=== PATIENT | female | born 1985 | race Caucasian/White ===

== ENCOUNTER 2019-07-24 17:25 | Emergency (ER) | payer BC ==
[2019-07-24] MEDS ORDERED: DIPHENHYDRAMINE 50 MG/ML VIAL ONE (18:55)
[2019-07-24] MEDS ORDERED: METOCLOPRAMIDE 10 MG/2mL INJ ONE (18:55)
[2019-07-24] MEDS ORDERED: NA CHLORIDE 0.9% 1,000 ML ONE (18:55)
[2019-07-24] MEDS ORDERED: KETOROLAC 30 MG/ML INJ ONE (18:55)
[2019-07-24 20:03] LABS: Urine Blood NEGATIVE (NEG); Urine Glucose NEGATIVE (NEG); Urine Protein NEGATIVE (NEG); Urine Specific Gravity <1.005 (1.005-1.030)
--- NOTE | 2019-07-24 20:24 | RAD REPORT ---
EXAM DESCRIPTION: CT - Head Brain Wo Cont - 07/24/2019 8:19 pm CLINICAL HISTORY: HEADACHE COMPARISON: No comparisons TECHNIQUE: Axial 5 mm thick images of the head were obtained without IV contrast. All CT scans are performed using dose optimization technique as appropriate and may include automated exposure control or mA/KV adjustment according to patient size. FINDINGS: No intracranial hemorrhage, mass, edema or shift of mid-line structures. No acute infarcti on changes seen. No abnormal extra-axial fluid collections. Ventricles are normal. Mastoid air cells and visualized portions of the paranasal sinuses are clear. No acute bony findings. IMPRESSION: Negative non-contrast CT head examination.
--- NOTE | 2019-07-24 21:32 | ER ---
Nurse's Notes [facility] Name: Sury Richter Age: 34 yrs Sex: Female : 1985 Arrival Date: 07/24/2019 Time: 17:30 Bed 15 Private MD: Diagnosis: Headache Presentation: 07/24 17:37 Presenting complaint: Patient states: Headache x 8 days, mostly on the L side and ca1 radiates to the front. Reports nausea. Denies vomiting, dizziness. Transition of care: patient was not received from another setting of care. Onset of symptoms was July 24, 2019. Risk Assessment: Do you want to hurt yourself or someone else? Patient reports no desire to harm self or others. Initial Sepsis Screen: Does the patient meet any 2 criteria? No. Patient's initial sepsis screen is negative. Does the patient have a suspected source of infection? No. Patient's initial sepsis screen is negative. Care prior to arrival: None. 17:37 Method Of Arrival: Ambulatory ca1 17:37 Acuity: RUSSELL 3 ca1 Triage Assessment: 19:17 Headache History: The patient has had previous headaches and this one is more severe mg2 than previous episodes. General: Appears in no apparent distress. comfortable, Behavior is calm, cooperative. Pain: Complains of pain in head. 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 - Coronavirus screen:: The patient has NOT traveled to [place], [place], or [place] in the past 14 days. The patient has NOT had contact with known/suspected case of Coronavirus?. - Social history:: Smoking status: Patient reports the use of cigarette tobacco products, denies chronic smoking, but will smoke occasionally. - Ebola Screening: : Patient negative for fever greater than or equal to 101.5 degrees Fahrenheit, and additional compatible Ebola Virus Disease symptoms Patient denies exposure to infectious person Patient denies travel to an Ebola-affected area in the 21 days before illness onset No symptoms or risks identified at this time. Screenin:16 Abuse screen: Denies threats or abuse. Denies injuries from another. Nutritional mg2 screening: No deficits noted. Tuberculosis screening: No symptoms or risk factors identified. Fall Risk IV access (20 points). Assessment: 19:16 General: Appears in no apparent distress. comfortable, Behavior is calm, cooperative. mg2 Pain: Complains of pain in left temporal. Neuro: Level of Consciousness is awake, alert, obeys commands, Oriented to person, place, time, situation, Reports headache. Cardiovascular: Capillary refill < 3 seconds Patient's skin is warm and dry. Respiratory: Airway is patent Respiratory effort is even, unlabored, Respiratory pattern is regular, symmetrical. GI: No signs and/or symptoms were reported involving the gastrointestinal system. : No signs and/or symptoms were reported regarding the genitourinary system. EENT: No signs and/or symptoms were reported regarding the EENT system. Derm: Skin is intact, is healthy with good turgor, Skin is pink, warm \T\ dry. normal. Musculoskeletal: Circulation, motion, and sensation intact. Capillary refill < 3 seconds. 19:52 Reassessment: Patient appears in no apparent distress at this time. Patient and/or jb4 family updated on plan of care and expected duration. Pain level reassessed. Patient is alert, oriented x 3, equal unlabored respirations, skin warm/dry/pink. 21:28 Reassessment: Patient appears in no apparent distress at this time. Patient and/or jb4 family updated on plan of care and expected duration. Pain level reassessed. Patient is alert, oriented x 3, equal unlabored respirations, skin warm/dry/pink. Vital Signs: 17:39 BP 154 / 99; Pulse 82; Resp 17 S; Temp 97.3(O); Pulse Ox 99% on R/A; Weight 113.4 kg ca1 (R); Height 5 ft. 5 in. (165.10 cm) (R); Pain 7/10; 19:45 BP 121 / 86; Pulse 77; Resp 16; Pulse Ox 98% on R/A; jb4 21:28 BP 111 / 72; Pulse 73; Resp 16; Pulse Ox 100% on R/A; Pain 4/10; jb4 17:39 Body Mass Index 41.60 (113.40 kg, 165.10 cm) ca1 ED Course: 17:30 Patient arrived in ED. mr 17:38 Triage completed. ca1 17:42 Arm band placed on right wrist. ca1 18:31 Stanley Morataya NP is PHCP. pm1 18:31 Tate Tucker MD is Attending Physician. pm1 18:31 Tyson Murray, RN is Primary Nurse. mg2 19:00 Inserted saline lock: 20 gauge in right antecubital area, using aseptic technique. mg2 19:17 Patient has correct armband on for positive identification. Pulse ox on. NIBP on. mg2 19:17 No provider procedures requiring assistance completed. mg2 21:28 IV discontinued, intact, bleeding controlled, No redness/swelling at site. Pressure jb4 dressing applied. Administered Medications: 19:00 Drug: TORadol - Ketorolac 15 mg Route: IVP; Site: right antecubital; mg2 21:32 Follow up: Response: No adverse reaction jb4 19:00 Drug: Benadryl 25 mg Route: IVP; Site: right antecubital; mg2 21:32 Follow up: Response: No adverse reaction jb4 19:00 Drug: Reglan 10 mg Route: IVP; Site: right antecubital; mg2 21:32 Follow up: Response: No adverse reaction jb4 19:00 Drug: NS 0.9% 1000 ml Route: IV; Rate: 1000 ml; Site: right antecubital; mg2 20:30 Follow up: Response: No adverse reaction; IV Status: Completed infusion; IV Intake: jb4 1000ml Intake: 20:30 IV: 1000ml; Total: 1000ml. jb4 Outcome: 21:18 Discharge ordered by . pm1 21:28 Discharged to home ambulatory, with family. jb4 21:28 Condition: stable 21:28 Discharge instructions given to patient, family, Instructed on discharge instructions, follow up and referral plans. medication usage, Demonstrated understanding of instructions, follow-up care, medications, Prescriptions given X 1. 21:33 Patient left the ED. jb4 Signatures: Pinky Mcleod mr RafiaStanley, CHERIE TOP LIFT CUTTER pm1 Randy Borja RN RN jb4 Tyson Murray, ROSA RN mg2 Nicky Carlos RN RN ca1
--- NOTE | 2019-07-24 21:33 | EDPHYS ---
Physician Documentation [facility] Name: Sury Richter Age: 34 yrs Sex: Female : 1985 Arrival Date: 07/24/2019 Time: 17:30 Bed 15 Private MD: ED Physician Tate Tucker HPI: 07/24 18:39 This 34 yrs old Female presents to ER via Ambulatory with complaints of pm1 Headache. 18:39 The patient complains of pain to the left side of head. The patient describes the pm1 headache as aching, constant. Onset: The symptoms/episode began/occurred 8 day(s) ago. Associated signs and symptoms: Pertinent positives: nausea, Pertinent negatives: altered mental status, fever, neck stiffness, paresthesias, Photophobia rash, vision changes, vertigo. Severity of symptoms: in the emergency department the pain is unchanged, a " 7" out of "10". Headache History: Denies prior headaches. The symptoms are alleviated by Darkened room, quiet, lying down and rest the symptoms are aggravated by nothing. Patient presents with complaints of headache for the past 8 days. Improved with OTC medications but returns after an hour of the medication giving some relief. Also improved with dark room and lying down. No aggravating factors. 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 - Coronavirus screen:: The patient has NOT traveled to [place], [place], or [place] in the past 14 days. The patient has NOT had contact with known/suspected case of Coronavirus?. - Social history:: Smoking status: Patient reports the use of cigarette tobacco products, denies chronic smoking, but will smoke occasionally. - Ebola Screening: : Patient negative for fever greater than or equal to 101.5 degrees Fahrenheit, and additional compatible Ebola Virus Disease symptoms Patient denies exposure to infectious person Patient denies travel to an Ebola-affected area in the 21 days before illness onset No symptoms or risks identified at this time. ROS: 18:39 Constitutional: Negative for fever, chills, and weight loss, Eyes: Negative for injury, pm1 pain, redness, and discharge, ENT: Negative for injury, pain, and discharge, Neck: Negative for injury, pain, and swelling, Cardiovascular: Negative for chest pain, palpitations, and edema, Respiratory: Negative for shortness of breath, cough, wheezing, and pleuritic chest pain. 18:39 Back: Negative for injury and pain, : Negative for injury, bleeding, discharge, and swelling, MS/Extremity: Negative for injury and deformity, Skin: Negative for injury, rash, and discoloration. 18:39 Abdomen/GI: Positive for nausea, Negative for abdominal pain, vomiting, diarrhea, constipation. 18:39 Neuro: Positive for headache, Negative for altered mental status, numbness, tingling. Exam: 18:39 Constitutional: This is a well developed, well nourished patient who is awake, alert, pm1 and in no acute distress. 18:39 Eyes: Pupils equal round and reactive to light, extra-ocular motions intact. Lids and lashes normal. Conjunctiva and sclera are non-icteric and not injected. Cornea within normal limits. Periorbital areas with no swelling, redness, or edema. ENT: Nares patent. No nasal discharge, no septal abnormalities noted. Tympanic membranes are normal and external auditory canals are clear. Oropharynx with no redness, swelling, or masses, exudates, or evidence of obstruction, uvula midline. Mucous membranes moist. Neck: Trachea midline, no thyromegaly or masses palpated, and no cervical lymphadenopathy. Supple, full range of motion without nuchal rigidity, or vertebral point tenderness. No Meningismus. Chest/axilla: Normal chest wall appearance and motion. Nontender with no deformity. No lesions are appreciated. Cardiovascular: Regular rate and rhythm with a normal S1 and S2. No gallops, murmurs, or rubs. No pulse deficits. Respiratory: Lungs have equal breath sounds bilaterally, clear to auscultation and percussion. No rales, rhonchi or wheezes noted. No increased work of breathing, no retractions or nasal flaring. Abdomen/GI: Soft, non-tender, with normal bowel sounds. No distension or tympany. No guarding or rebound. No evidence of tenderness throughout. Back: No spinal tenderness. No costovertebral tenderness. Full range of motion. Skin: Warm, dry with normal turgor. Normal color with no rashes, no lesions, and no evidence of cellulitis. MS/ Extremity: Pulses equal, no cyanosis. Neurovascular intact. Full, normal range of motion. 18:39 Head/face: Noted is no obvious of injury or deformity except tenderness, of the left occipital area, of the palpation reproduces/intensifies headache. 18:39 Neuro: Orientation: is normal, Mentation: is normal, Cranial nerves: CN II- XII are normal as tested, Cerebellar function: normal finger to nose testing, Motor: moves all fours, strength is normal, strength is 5/5 in all extremities. Vital Signs: 17:39 BP 154 / 99; Pulse 82; Resp 17 S; Temp 97.3(O); Pulse Ox 99% on R/A; Weight 113.4 kg ca1 (R); Height 5 ft. 5 in. (165.10 cm) (R); Pain 7/10; 19:45 BP 121 / 86; Pulse 77; Resp 16; Pulse Ox 98% on R/A; jb4 21:28 BP 111 / 72; Pulse 73; Resp 16; Pulse Ox 100% on R/A; Pain 4/10; jb4 17:39 Body Mass Index 41.60 (113.40 kg, 165.10 cm) ca1 MDM: 18:31 Patient medically screened. pm1 21:14 Data reviewed: vital signs. Data interpreted: Pulse oximetry: on room air is 98 %. pm1 Interpretation: normal. Counseling: I had a detailed discussion with the patient and/or guardian regarding: the historical points, exam findings, and any diagnostic results supporting the discharge/admit diagnosis, radiology results, the need for outpatient follow up, to return to the emergency department if symptoms worsen or persist or if there are any questions or concerns that arise at home. 07/24 18:52 Order name: Urine Dipstick--Ancillary (enter results) bd 07/24 20:05 Order name: Urine Dipstick-Ancillary; Complete Time: 20:06 EDMS 07/24 18:39 Order name: CT Head Brain wo Cont pm1 07/24 21:01 Order name: CT; Complete Time: 21:13 EDMS 07/24 18:39 Order name: Urine Dipstick-Ancillary (obtain specimen); Complete Time: 19:13 pm1 07/24 18:39 Order name: Urine Test (obtain specimen); Complete Time: 19:13 pm1 07/24 18:39 Order name: IV Saline Lock; Complete Time: 19:13 pm1 Administered Medications: 19:00 Drug: TORadol - Ketorolac 15 mg Route: IVP; Site: right antecubital; mg2 21:32 Follow up: Response: No adverse reaction jb4 19:00 Drug: Benadryl 25 mg Route: IVP; Site: right antecubital; mg2 21:32 Follow up: Response: No adverse reaction jb4 19:00 Drug: Reglan 10 mg Route: IVP; Site: right antecubital; mg2 21:32 Follow up: Response: No adverse reaction jb4 19:00 Drug: NS 0.9% 1000 ml Route: IV; Rate: 1000 ml; Site: right antecubital; mg2 20:30 Follow up: Response: No adverse reaction; IV Status: Completed infusion; IV Intake: jb4 1000ml Disposition: 07/25 07:39 Co-signature as Attending Physician, Tate Tucker MD I agree with the assessment and dylan plan of care. Disposition: 07/24/19 21:18 Discharged to Home. Impression: Headache. - Condition is Stable. - Discharge Instructions: General Headache Without Cause. - Prescriptions for Fiorinal 50- 325-40 mg Oral Capsule - take 1 capsule by ORAL route every 4 hours As needed - not to exceed 6 capsules per day; 20 capsule. - Medication Reconciliation Form, Thank You Letter, Antibiotic Education, Prescription Opioid Use form. - Follow up: Emergency Department; When: As needed; Reason: Worsening of condition. Follow up: Private Physician; When: 2 - 3 days; Reason: Recheck today's complaints, Continuance of care, Re-evaluation by your physician. - Problem is new. - Symptoms have improved. Signatures: Dispatcher [employer] EDTate Morales MD MD cha Marinas, Patrick, CHERIE UROLOGY TEACHER pm1 Randy Borja RN RN jb4 Tyson Murray RN RN mg2 Nicky aCrlos RN RN ca1 Corrections: (The following items were deleted from the chart) 07/24 21:33 21:18 07/24/2019 21:18 Discharged to Home. Impression: Headache. Condition is Stable. jb4 Forms are Medication Reconciliation Form, Thank You Letter, Antibiotic Education, Prescription Opioid Use. Follow up: Emergency Department; When: As needed; Reason: Worsening of condition. Follow up: Private Physician; When: 2 - 3 days; Reason: Recheck today's complaints, Continuance of care, Re-evaluation by your physician. Problem is new. Symptoms have improved. pm1
[2019-07-26 22:38] VITALS: TEMP 97.3
[2019-07-26 22:40] VITALS: BP 111/72; O2SAT 100
== END 2019-07-24 21:33 | disposition home or self-care (01) ==
LOC: ER 17:25
DX: R51 Headache (principal); F17.210 Nicotine dependence, cigarettes, uncomplicated
CPT/HCPCS: 96361; 81003; 70450; 96375; 96374; 99284; J2765; J1200; J7030